=== PATIENT | female | born 1990 | race Two or more races ===

== ENCOUNTER 2020-05-26 04:39 | Inpatient (IN) | payer BC ==
[2020-05-26 05:22] LABS: APPEARANCE,URINE SLIGHTLY-CLOUDY; BILIRUBIN,URINE NEGATIVE (NEGATIVE); COLOR,URINE YELLOW; GLUCOSE, URINE NEGATIVE (NEGATIVE); KETONES,URINE NEGATIVE (NEGATIVE); LEUKOCYTE ESTERASE,URINE TRACE (NEGATIVE); NITRITE,URINE NEGATIVE (NEGATIVE); PROTEIN,URINE NEGATIVE (NEGATIVE); URINE SPECIFIC GRAVITY 1.019; UROBILINOGEN,URINE NEGATIVE mg/dL (<2.0)
[2020-05-26] MEDS ORDERED: RINGERS SOLUTION,LACTATED 1,000 ML IV ONE (05:24)
[2020-05-26 05:38] LABS: URINE AMPHETAMINES SCREEN NEGATIVE; URINE BARBITURATES SCREEN NEGATIVE; URINE BENZODIAZEPINES SCREEN NEGATIVE; URINE COCAINE SCREEN NEGATIVE; URINE MARIJUANA (THC) SCREEN NEGATIVE; URINE METHADONE SCREEN NEGATIVE; URINE PHENCYCLIDINE SCREEN NEGATIVE
[2020-05-26] MEDS: RINGERS SOLUTION,LACTATED 1,000 ML IV PRN ×5 (05:45→16:04)
[2020-05-26] MEDS ORDERED: OXYTOCIN/0.9 % SODIUM CHLORIDE 30 UNIT/500 ML RTUINJ ONE (05:56)
[2020-05-26] MEDS ORDERED: LIDOCAINE 1% INJ-PF (10 MG/ML) 30 ML SDV ONE (05:56)
[2020-05-26] MEDS ORDERED: OXYTOCIN 10 UNIT/ML VIAL ONE (05:56)
[2020-05-26] MEDS ORDERED: MISOPROSTOL 0.2 MG TABLET ONE (05:56)
[2020-05-26] MEDS ORDERED: OXYTOCIN/0.9 % SODIUM CHLORIDE 30 UNIT/500 ML RTUINJ IV PRN (06:04)
[2020-05-26 06:06] LABS: ABSOLUTE EOSINOPHILS # (AUTO) 0.1 10^3/uL (0.0-0.6); ABSOLUTE LYMPHOCYTES (AUTO) 1.4 10^3/uL (0.5-4.7); ABSOLUTE MONOCYTES (AUTO) 0.7 10^3/uL (0.1-1.4); ABSOLUTE NEUT (AUTO) 8.3 10^3/uL (1.7-8.2); BASOPHILS % (AUTO) 0.2 % (0-2); EOSINOPHILS % (AUTO) 0.8 % (0-6); HEMATOCRIT 30.8 % (36.0-47.0); HEMOGLOBIN 10.7 g/dL (12.0-15.5); LYMPHOCYTES % (AUTO) 13.6 % (13-45); MEAN CORPUSCULAR HEMOGLOBIN 32.6 pg (27.0-33.4); MEAN CORPUSCULAR HGB CONC 34.7 g/dL (32.0-36.0); MEAN CORPUSCULAR VOLUME 94 fl (80-97); MONOCYTES % (AUTO) 6.9 % (3-13); PLATELET COUNT 161 10^3/uL (150-450); RED BLOOD COUNT 3.28 10^6/uL (3.72-5.28); SEGMENTED NEUTROPHILS % (AUTO) 78.5 % (42-78); TOTAL CELLS COUNTED % (AUTO) 100 %; WHITE BLOOD COUNT 10.6 10^3/uL (4.0-10.5)
[2020-05-26] MEDS ORDERED: NALBUPHINE HCL INJ 10 MG/1 ML AMPULE ONE (08:57)
[2020-05-26] MEDS ORDERED: NALBUPHINE HCL INJ 10 MG/1 ML AMPULE INJ ONE (09:19)
[2020-05-26] MEDS ORDERED: BUPIVACAINE HCL 0.25 % INJ/PF (2.5 MG/1 ML) 30 ML VIAL ONE (10:58)
[2020-05-26] MEDS ORDERED: EPHEDRINE SULFATE INJ 50 MG/1 ML AMPULE ONE (10:58)
[2020-05-26] MEDS ORDERED: FENTANYL/BUPIVACAINE/NS/PF 300 MCG/150 ML RTUINJ EPI ONE (10:58)
--- NOTE | 2020-05-26 11:23 | Admission Physical ---
Datetime Report Generated by CPN: 05/26/2020 11:23 CURRENT ADMISSION Hx Assessment: The History has been Reviewed and is Current Chief Complaint: Suspected Ruptured Membranes Admit Impression : Term, Intrauterine ; No Active Labor; Ruptured Membranes Admit Plan: Admit to Unit; Initiate Labor Induction Protocol ALLERGIES Medication Allergies: No Medication Allergies: No Known Allergies (05/26/2020) Latex: No Latex Allergies OBSTETRICAL HISTORY EDC: 05/27/2020 00:00 : 1 Para: 0 Term: 0 : 0 SAB: 0 IAB: 0 Ectopic: 0 Livin Cesareans: 0 VBACs: 0 Multiple Births: 0 Gestational Diabetes: No Rh Sensitization: No Incompetent Cervix: No ELISE: No Infertility: No ART Treatment: No Uterine Anomaly: No IUGR: No Hx Previous C/S: No Macrosomia: No Hx Loss/Stillborn: No PIH: No Hx : No Placenta Previa/Abruption: No Depression/PP Depression: No PTL/PROM: No Post Hemorrhage: No Current Procedures: Ultrasound Obstetrical History Comments: G1- current SEE RECORDS Alcohol: No Marijuana : No Cocaine: No Other Illicit Drugs: No Cigarettes: Never Smoker. 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: No Heart Disease: No Hosp/Surgery: No Autoimmune Disorder: No Anesthetic Complications: No Kidney Disease: No Abnormal Pap Smear: No Neuro/Epilepsy: No Psychiatric Disorders: No Other Medical Diseases: No Hepatitis/Liver Disease: No Significant Family History: No Varicosities/Phlebitis: No Trauma/Violence : No Thyroid Dysfunction: No INFECTIOUS HISTORY Gonorrhea: No Genital Herpes: No Chlamydia: No Syphilis: No HIV/AIDS Exposure: No HPV: No PHYSICAL EXAM General: Normal HEENT: Normal Neurologic: Normal Thyroid: Normal Heart: Normal Lungs: Normal Breast: Deferred Back: Normal Abdomen: Normal Genitourinary Exam: Normal Extremities: Normal DTRs: Normal Pelvic Type: Adequate Physical Exam Comments: Covid test neg CVS after fever and cold symptoms GBS neg Vital Signs: Reviewed FETUS A EGA: 39.6 Monitoring: External US Decelerations: None FHR Category: Category I Admit Comment: Admitted to LD for SROM, by Dr. Ruiz, Pitocin and ramirez bulb by Dr. Ochoa, Cat 1 strip, irreg uc's, requesting epidural Pt agrees to POC PLANS FOR LABOR AND DELIVERY Labor and Delivery: None Pain Management: None Feeding Preference: Breast Circumcision: Yes INFORMED CONSENT Assignment: Cyndee Ochoa MD Signature: with User ID: [email or web address] : with User ID: [email or web address]
--- NOTE | 2020-05-26 14:59 | L&D Progress Notes ---
PROGRESS NOTES Datetime Report Generated by CPN: 05/26/2020 14:59 PROGRESS NOTE Comment: late decelerations, moderate variability, turn to left side and trendelenberg, Pitocin off, Dr. Ochoa aware of status LAST VAGINAL EXAM-NURSING Nursing Exam Dilitation: 5.0 Nursing Exam Effacement: 80 Nursing Exam Station: -2 SIGNATURE SIGNATURE: [id number];[id number] Assignment: Cyndee Ochoa MD Signature: with User ID: Asya : with User ID: Asya
--- NOTE | 2020-05-26 15:34 | L&D Progress Notes ---
PROGRESS NOTES Datetime Report Generated by CPN: 05/26/2020 15:33 PROGRESS NOTE Comment: Cat 1 strip, will restart Pitocin, Dr. Ochoa aware with strip status LAST VAGINAL EXAM-NURSING Nursing Exam Dilitation: 5.0 Nursing Exam Effacement: 80 Nursing Exam Station: -2 SIGNATURE SIGNATURE: [id number];[id number] Assignment: Cyndee Ochoa MD Signature: with User ID: Asya : with User ID: Asya
[2020-05-26] MEDS ORDERED: GENTAMICIN SULFATE INJ 80 MG/2 ML VIAL ONE ×2 (21:50→22:05)
[2020-05-26] MEDS ORDERED: AMPICILLIN SOD INJ 2 GM VIAL ONE (21:50)
[2020-05-26] MEDS ORDERED: GENTAMICIN SULFATE INJ 80 MG/2 ML VIAL IV ONE (21:50)
[2020-05-26] MEDS ORDERED: GENTAMICIN SULFATE INJ 80 MG/2 ML VIAL IV SCH (22:00)
[2020-05-27] MEDS ORDERED: GENTAMICIN SULFATE INJ 80 MG/2 ML VIAL IV PRN (00:46)
[2020-05-27] MEDS ORDERED: CITRIC ACID/SODIUM CITRATE ORAL SOLN 15 ML UDCUP ONE (01:19)
[2020-05-27] MEDS ORDERED: CEFAZOLIN 2 GM/D5W RTU 2 GM/50 ML RTUPB IV ONE (01:19)
[2020-05-27] MEDS ORDERED: METHYLERGONOVINE MALEATE INJ/PF 0.2 MG/1 ML AMPULE ONE ×2 (01:26→01:40)
[2020-05-27] MEDS ORDERED: OXYTOCIN 10 UNIT/ML VIAL ONE (01:39)
[2020-05-27] MEDS ORDERED: ACETAMINOPHEN 1,000 MG/100 ML RTUPB IV ONE (01:40)
[2020-05-27] MEDS ORDERED: FENTANYL CITRATE INJ/PF 100 MCG/2 ML AMPUL ONE ×2 (01:40→03:45)
[2020-05-27] MEDS ORDERED: KETOROLAC TROMETHAMINE INJ/PF 30 MG/1 ML SDV ONE (01:40)
[2020-05-27] MEDS ORDERED: EPHEDRINE SULFATE INJ 50 MG/1 ML AMPULE ONE (01:40)
[2020-05-27] MEDS ORDERED: MIDAZOLAM 2 MG/2 ML INJ ONE (01:40)
--- NOTE | 2020-05-27 01:44 | L&D Progress Notes ---
PROGRESS NOTES Datetime Report Generated by CPN: 05/27/2020 01:44 PROGRESS NOTE Comment: not febrile yet but on exam concern for chorio. Now with continued late decelerations and variables. Pt with 60# weight gain in . Recommend c/s for NRFHTs. LAST VAGINAL EXAM-NURSING Nursing Exam Dilitation: 10.0 Nursing Exam Effacement: 100 Nursing Exam Station: 0 Nursing Exam Contractions: abdomen soft between contractions. SIGNATURE SIGNATURE: [id number];[id number] Assignment: Cyndee Ochoa MD Signature: with User ID: Nicolette : with User ID: [email or web address]
[2020-05-27] MEDS ORDERED: LIDOCAINE 2% INJ-PF (20 MG/ML) 10 ML AMPUL ONE (01:46)
[2020-05-27] MEDS ORDERED: PROMETHAZINE HCL INJ 25 MG/1 ML VIAL IV PRN ×3 (02:29→06:50)
[2020-05-27] MEDS ORDERED: MEPERIDINE HCL/PF INJ 25 MG/1 ML DISP.SYRIN IV PRN (02:29)
[2020-05-27] MEDS ORDERED: FENTANYL CITRATE INJ/PF 100 MCG/2 ML AMPUL IV PRN ×3 (02:29)
[2020-05-27] MEDS ORDERED: MORPHINE SULFATE 10 MG/ML INJ IV PRN (02:29)
[2020-05-27] MEDS ORDERED: DIPHENHYDRAMINE HCL 50 MG/ML VIAL IV PRN (02:29)
[2020-05-27] MEDS ORDERED: OXYCODONE-ACETAMINOPHEN 5-325 MG TABLET PO PRN ×2 (02:29)
--- NOTE | 2020-05-27 03:09 | Brief Operative Note ---
BRIEF OPERATIVE REPORT DATE OF SURGERY: 05/27/20 TIME OF SURGERY: 02:00 PREOPERATIVE DIAGNOSIS: PUND at 40+0ega, PROM with prolonged Rupture of membranes, Suspected chorioamniotis, Nonreassuring FHRT, Excess weight gain in , tachycardia. POSTOPERATIVE DIAGNOSIS: GABE - delivered SURGEON: MAYNOR VALENCIA FINDINGS: VMI delivered at 0222, weight 8#, APgars 9/9. Normal bilateral tubes and ovaries. Uterine atony resolved with WILMAR pitocin 10units IM and TN cytotec 1000mcg. Surgicel placed. COMPLICATIONS: uterine atony ESTIMATED BLOOD LOSS: 700 TISSUE REMOVED OR ALTERED: placenta and cord TECHNICAL PROCEDURE: Primary Section
[2020-05-27] MEDS ORDERED: MORPHINE SULFATE 10 MG/ML INJ ONE (03:15)
--- NOTE | 2020-05-27 03:24 | Warning Signs in Babies ---
VOD Warning Signs Datetime Report Generated by [facility]: 05/27/2020 03:24 VOD#608 -Warning Signs in Babies: Needs to be viewed. (05/26/2020 04:41:Abbie lEias RN)
[2020-05-27] MEDS ORDERED: OXYTOCIN/0.9 % SODIUM CHLORIDE 30 UNIT/500 ML RTUINJ ONE (03:30)
--- NOTE | 2020-05-27 04:25 | Delivery Summary ---
Del Sum A-C Datetime Report Generated by CPN: 05/27/2020 04:25 DELIVERY PERSONNEL DELIVERY PERSONNEL: [id number] Delivery Doctor:: Cyndee Ochoa MD Anesthesiologist:: Caity PER DIEM:: Kiara Carrington CRNA Foreign Language Professor:: Eva Mendez RN Nursery Nurse:: Donna Copeland RN Senior Financial Accountant/LANDING SUPPORT SPECIALIST: ST Chely Senior Financial Accountant/LANDING SUPPORT SPECIALIST: [facility] Luigi MATERNAL INFORMATION Delivery Anesthesia: Epidural Medications After Delivery: Pitocin 30 Units in 500ml NS/D5W; Cytotec 1000mcg Per Rectum/Vagina Delivery QBL: 320 Maternal Complications: Premature Rupture of Membranes; Chorioamnionitis; Maternal Fever LABOR SUMMARY EDC: 05/27/2020 00:00 No. Babies in Womb: 1 Attempted: No Labor Anesthesia: Epidural LABOR INFORMATION Reason for Induction: Not Applicable Onset of Labor: 05/26/2020 17:47 Complete Dilatation: 05/27/2020 01:04 Oxytocin: Augmentation Group B Beta Strep: Negative Antibiotics # of Doses: 0 Antibiotics Time of Last Dose: N/A Name of Antibiotic Given: N/A Steroids Given: None Reason Steroids Not Administered: Not Applicable MEMBRANES Membranes Rupture Method: Spontaneous Rupture of Membranes: 05/26/2020 02:40 Length of Rupture (hr): 23.70 Amniotic Fluid Color: Light Meconium Amniotic Fluid Amount: Moderate Amniotic Fluid Odor: Normal STAGES OF LABOR Stage 1 hr: 7 Stage 1 min: 17 Stage 2 hr: 1 Stage 2 min: 18 Stage 3 hr: 0 Stage 3 min: 3 Total Time in Labor hr: 8 Total Time in Labor min: 38 VAGINAL DELIVERY Episiotomy: None Laceration #1: None Laceration Extension #1: N/A Laceration Repair: Not Applicable Sponge Count Correct: N/A CSECTION DELIVERY Primary Indication: Nonreassuring Status Secondary Indication: N/A CSection Urgency: Non-Scheduled CSection Incidence: Primary Labor: Labor Elective: Nonelective CSection Incision: Lower Uterine Transverse BABY A INFORMATION Delivery Date/Time: 05/27/2020 02:22 Method of Delivery: Nurse Controlled Delivery: No Born in Route : No : N/A Forceps: N/A Vacuum Extraction: N/A Shoulder Dystocia : No PRESENTATION/POSITION BABY A Presentation: Cephalic Cephalic Presentation: Vertex Breech Presentation: N/A PLACENTA INFORMATION BABY A Placenta Delivery Time : 05/27/2020 02:25 Placenta Method of Delivery: Manual Removal Placenta Status: Delivered SCORES BABY A Heart Rate 1 min: >100 bpm Resp Effort 1 min: Good Cry Reflex Irritability 1 min: Cough or Sneeze or Pulls Away Muscle Tone 1 min: Active Motion Color 1 min: Body [place], Extremities Blue Resuscitation Effort 1 min: Tactile Stimulation SCORE 1 MIN: 9 Heart Rate 5 min: >100 bpm Resp Effort 5 min: Good Cry Reflex Irritability 5 min: Cough or Sneeze or Pulls Away Muscle Tone 5 min: Active Motion Color 5 min: Body [place], Extremities Blue SCORE 5 MIN: 9 INFORMATION BABY A Gestational Age at Delivery: 40.0 Gestational Status: Full Term- 39- 40.6 Weeks Infant Outcome : Liveborn Condition : Stable Sex: Male WEIGHT/LENGTH BABY A Birthweight (gm): 3615 Infant Weight (lb): 8 Weight (oz): 0 Length (in): 21.00 Infant Length (cm): 53.34 CORD INFORMATION BABY A No. 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
[2020-05-27] MEDS ORDERED: OXYCODONE-ACETAMINOPHEN 5-325 MG TABLET ONE (04:55)
[2020-05-27] MEDS ORDERED: GENTAMICIN SULFATE 120 MG in DEXTROSE 5%-WATER 100 ML IV SCH (06:00)
[2020-05-27] MEDS ORDERED: OXYTOCIN/0.9 % SODIUM CHLORIDE 30 UNIT/500 ML RTUINJ IV PRN (06:50)
[2020-05-27] MEDS ORDERED: SIMETHICONE 80 MG TAB.CHEW PO PRN (06:50)
[2020-05-27] MEDS ORDERED: ACETAMINOPHEN 325 MG TABLET PO PRN (06:50)
[2020-05-27] MEDS ORDERED: MEASLES,MUMPS&RUBELLA VACC/PF 0.5 ML VIAL SUBCUT PRN (06:50)
[2020-05-27] MEDS ORDERED: HYDROMORPHONE HCL INJ/PF 2 MG/ML AMPULE IV PRN (06:50)
[2020-05-27] MEDS ORDERED: DIPH/PERTUSS(ACELL)/TETANUS VAC/PF 0.5 ML SYR (>=10YO) IM PRN (06:50)
[2020-05-27] MEDS ORDERED: ACETAMINOPHEN 1,000 MG/100 ML RTUPB IV PRN (06:50)
[2020-05-27] MEDS ORDERED: RINGERS SOLUTION,LACTATED 1,000 ML IV PRN (06:50)
[2020-05-27] MEDS ORDERED: AMPICILLIN SOD INJ 1 GM VIAL ONE (06:53)
[2020-05-27] MEDS ORDERED: GENTAMICIN SULFATE INJ 80 MG/2 ML VIAL ONE (06:53)
[2020-05-27] MEDS: AMPICILLIN SODIUM 2 GM in NORMAL SALINE 100 ML IV SCH ×4 (08:21→21:44)
[2020-05-27] MEDS: DOCUSATE SODIUM 100 MG CAPSULE PO SCH ×2 (09:47→17:41)
[2020-05-27] MEDS: KETOROLAC TROMETHAMINE INJ/PF 30 MG/1 ML SDV IV SCH ×2 (09:47→17:40)
[2020-05-27] MEDS: PRENATAL VITAMIN W DHA CAPSULE PO SCH (09:47)
[2020-05-27] MEDS: RINGERS SOLUTION,LACTATED 1,000 ML IV PRN (09:51)
--- NOTE | 2020-05-27 10:14 | PDOC PROGRESS REPORT ---
Subjective-OB Progress Note for:: 05/27/20 Subjective: Feeling ok, some incisional pain, has not been out of bed, hsb at BS, plans to breast feed, taking food well Physical Exam (OB) Vital Signs: Temp Pulse Resp BP Pulse Ox 97.9 F 76 18 98/56 L 98 05/27/20 09:33 05/27/20 09:33 05/27/20 09:33 05/27/20 09:33 05/27/20 09:33 Intake & Output 05/26/20 05/27/20 05/28/20 06:59 06:59 06:59 Intake Total 2291 Balance 2291 Weight 77.8 kg - Incision: Open Closure Type: Surgical Glue - Lochia Lochia Amount: Scant < 10 ml Lochia Color: Rubra/Red - Abdomen Description: Tender, Soft, Round Hernia Present: No Fundal Description: Firm, Midline Fundal Height: u/u - u/2 Objective-Diagnostic Laboratory: 05/26/20 05:47 Assessment and Plan(PN) - Assessment and Plan (1) Status post primary low transverse section Is this a current diagnosis for this admission?: Yes (2) Non-reassuring electronic monitoring tracing Is this a current diagnosis for this admission?: Yes (3) Chorioamnionitis, delivered, current hospitalization Is this a current diagnosis for this admission?: Yes (4) Prolonged rupture of membranes Is this a current diagnosis for this admission?: Yes (5) Premature rupture of membranes Qualifiers: PROM onset of labor timing: onset of labor within 24 hours of rupture Is this a current diagnosis for this admission?: Yes - Time Spent with Patient Time with patient: Less than 15 minutes Medications reviewed and adjusted accordingly: Yes - Disposition Anticipated Discharge: Home Within: within 24 hours
[2020-05-27] MEDS: GENTAMICIN SULFATE 120 MG in DEXTROSE 5%-WATER 100 ML IV SCH ×2 (11:38→17:42)
[2020-05-27] MEDS: OXYCODONE-ACETAMINOPHEN 5-325 MG TABLET PO PRN ×2 (17:41→21:46)
[2020-05-27] MEDS: DIPHENHYDRAMINE HCL 50 MG CAPSULE PO PRN (17:45)
[2020-05-27] MEDS: IBUPROFEN 800 MG TABLET PO SCH (23:21)
[2020-05-28] MEDS: OXYCODONE-ACETAMINOPHEN 5-325 MG TABLET PO PRN ×5 (01:54→18:37)
[2020-05-28] MEDS: GENTAMICIN SULFATE 120 MG in DEXTROSE 5%-WATER 100 ML IV SCH (01:55)
[2020-05-28] MEDS: AMPICILLIN SODIUM 2 GM in NORMAL SALINE 100 ML IV SCH ×2 (03:32→09:16)
[2020-05-28] MEDS: DIPHENHYDRAMINE HCL 50 MG CAPSULE PO PRN ×2 (03:40→12:03)
[2020-05-28] MEDS: IBUPROFEN 800 MG TABLET PO SCH ×3 (06:07→18:36)
[2020-05-28 07:00] LABS: HEMATOCRIT 26.9 % (36.0-47.0); MEAN CORPUSCULAR HEMOGLOBIN 31.9 pg (27.0-33.4); MEAN CORPUSCULAR HGB CONC 33.6 g/dL (32.0-36.0); MEAN CORPUSCULAR VOLUME 95 fl (80-97); PLATELET COUNT 148 10^3/uL (150-450); RED BLOOD COUNT 2.83 10^6/uL (3.72-5.28); RED CELL DISTRIBUTION WIDTH 13.7 % (11.5-14.0); WHITE BLOOD COUNT 13.9 10^3/uL (4.0-10.5)
--- NOTE | 2020-05-28 09:12 | PDOC PROGRESS REPORT ---
Subjective-OB Progress Note for:: 05/27/20 Subjective: Doing well, no c/o, feeling better today, less pain, eating and voiding Physical Exam (OB) Vital Signs: Temp Pulse Resp BP Pulse Ox 98.0 F 85 16 99/56 L 96 05/28/20 07:25 05/28/20 07:25 05/28/20 07:25 05/28/20 07:25 05/28/20 07:25 Intake & Output 05/27/20 05/28/20 05/29/20 06:59 06:59 06:59 Intake Total 2291 700 Output Total 700 Balance 2291 0 - PIH/Pre-Eclampsia DTR's: 2 + Clonus: Negative Headache: Absent Epigastric Pain: No Visual Changes: No - Dressing Removed: - N/A Incision: Open, Well Approximated Closure Type: Surgical Glue - Lochia Lochia Amount: Scant < 10 ml Lochia Color: Rubra/Red - Abdomen Description: Tender, Soft Hernia Present: No Fundal Description: Firm, Midline Fundal Height: u/u - u/2 Objective-Diagnostic Laboratory: 05/28/20 05:57 05/28/20 05:57 WBC 13.9 H RBC 2.83 L Hgb 9.0 L Hct 26.9 L MCV 95 MCH 31.9 MCHC 33.6 RDW 13.7 Plt Count 148 L Assessment and Plan(PN) - Assessment and Plan (1) Status post primary low transverse section Is this a current diagnosis for this admission?: Yes (2) Non-reassuring electronic monitoring tracing Is this a current diagnosis for this admission?: Yes (3) Chorioamnionitis, delivered, current hospitalization Is this a current diagnosis for this admission?: Yes (4) Prolonged rupture of membranes Is this a current diagnosis for this admission?: Yes (5) Premature rupture of membranes Qualifiers: PROM onset of labor timing: onset of labor within 24 hours of rupture Is this a current diagnosis for this admission?: Yes - Time Spent with Patient Time with patient: Less than 15 minutes Medications reviewed and adjusted accordingly: Yes - Disposition Anticipated Discharge: Home Within: within 24 hours
[2020-05-28] MEDS: PRENATAL VITAMIN W DHA CAPSULE PO SCH (10:14)
[2020-05-28] MEDS: DOCUSATE SODIUM 100 MG CAPSULE PO SCH ×2 (10:14→18:36)
[2020-05-29] MEDS: IBUPROFEN 800 MG TABLET PO SCH ×3 (00:32→12:00)
[2020-05-29 07:43] VITALS: BP 108/70
--- NOTE | 2020-05-29 08:47 | PDOC PROGRESS REPORT ---
Subjective-OB Progress Note for:: 05/29/20 Subjective: Ready for discharge. Physical Exam (OB) Vital Signs: Temp Pulse Resp BP Pulse Ox 98.0 F 91 16 108/70 100 05/29/20 07:42 05/29/20 07:42 05/29/20 07:42 05/29/20 07:42 05/29/20 07:42 Intake & Output 05/28/20 05/29/20 05/30/20 06:59 06:59 06:59 Intake Total 700 3680 Output Total 700 Balance 0 3680 - PIH/Pre-Eclampsia DTR's: 2 + Clonus: Negative Headache: Absent Epigastric Pain: No Visual Changes: No - Dressing Removed: No Incision: Well Approximated Closure Type: Surgical Glue - Lochia Lochia Amount: Small 10-25 ml Lochia Color: Rubra/Red - Abdomen Description: Tender, Soft Hernia Present: No Bowel Sounds: Normoactive Flatus Presence: Present Stool: No Fundal Description: Firm, Midline Fundal Height: u/u - u/2 Objective-Diagnostic Laboratory: 05/28/20 05:57 Assessment and Plan(PN) - Time Spent with Patient Medications reviewed and adjusted accordingly: Yes - Disposition Anticipated Discharge: Home
--- NOTE | 2020-05-29 09:21 | PDOC DISCHARGE SUMMARY ---
Impression - Admit/DC Date/PCP Admission Date/Primary Care Provider: 05/26/20 05:26 JONNATHAN TONEY MD Discharge Date: 05/29/20 - Discharge Diagnosis (1) Chorioamnionitis, delivered, current hospitalization Is this a current diagnosis for this admission?: Yes (2) Non-reassuring electronic monitoring tracing Is this a current diagnosis for this admission?: Yes (4) Premature rupture of membranes Is this a current diagnosis for this admission?: Yes (5) Prolonged rupture of membranes Is this a current diagnosis for this admission?: Yes (6) Status post primary low transverse section Is this a current diagnosis for this admission?: Yes - Additional Information Resuscitation Status: Full Code Discharge Diet: Regular Discharge Activity: Activity As Tolerated, Balance Activity w/Rest, No Lifting Over 10 Pounds, No Lifting/Push/Pulling, Pelvic Rest, Slowly Increase Activity, No tub bath Referrals: JONNATHAN TONEY MD [Primary Care Provider] - Prescriptions: Oxycodone HCl/Acetaminophen [Percocet 5-325 mg Tablet] 1 tab PO Q4HP PRN #20 tablet PRN Reason: Ferrous Sulfate [Feosol 325 mg Tablet] 325 mg PO DAILY #30 tab Ibuprofen [Motrin 800 mg Tablet] 800 mg PO Q6 #30 tablet Home Medications: Prenat 115/Iron Fum/Folic/Dss [ 19 Tablet] 1 tab PO DAILY 05/26/20 Ferrous Sulfate [Feosol 325 mg Tablet] 325 mg PO DAILY #30 tab 05/29/20 Ibuprofen [Motrin 800 mg Tablet] 800 mg PO Q6 #30 tablet 05/29/20 Oxycodone HCl/Acetaminophen [Percocet 5-325 mg Tablet] 1 tab PO Q4HP PRN #20 tablet 05/29/20 HPI Gestational Age: 40 wks Reason(s) for Admission: PROM Procedures: Ultrasound Intrapartum Procedure(s): : Low Cervical, Transverse Results Laboratory Results: WBC 13.9 10^3/uL (4.0-10.5) H 05/28/20 05:57 RBC 2.83 10^6/uL (3.72-5.28) L 05/28/20 05:57 Hgb 9.0 g/dL (12.0-15.5) L 05/28/20 05:57 Hct 26.9 % (36.0-47.0) L 05/28/20 05:57 MCV 95 fl (80-97) 05/28/20 05:57 MCH 31.9 pg (27.0-33.4) 05/28/20 05:57 MCHC 33.6 g/dL (32.0-36.0) 05/28/20 05:57 RDW 13.7 % (11.5-14.0) 05/28/20 05:57 Plt Count 148 10^3/uL (150-450) L 05/28/20 05:57 Lymph % (Auto) 13.6 % (13-45) 05/26/20 05:47 [place] % (Auto) 6.9 % (3-13) 05/26/20 05:47 Eos % (Auto) 0.8 % (0-6) 05/26/20 05:47 Baso % (Auto) 0.2 % (0-2) 05/26/20 05:47 Absolute Neuts (auto) 8.3 10^3/uL (1.7-8.2) H 05/26/20 05:47 Absolute Lymphs (auto) 1.4 10^3/uL (0.5-4.7) 05/26/20 05:47 Absolute Monos (auto) 0.7 10^3/uL (0.1-1.4) 05/26/20 05:47 Absolute Eos (auto) 0.1 10^3/uL (0.0-0.6) 05/26/20 05:47 Absolute Basos (auto) 0.0 10^3/uL (0.0-0.2) 05/26/20 05:47 Seg Neutrophils % 78.5 % (42-78) H 05/26/20 05:47 Urine Color YELLOW 05/26/20 04:50 Urine Appearance SLIGHTLY-CLOUDY 05/26/20 04:50 Urine pH 6.0 (5.0-9.0) 05/26/20 04:50 Ur Specific Omer 1.019 05/26/20 04:50 Urine Protein NEGATIVE mg/dL (NEGATIVE) 05/26/20 04:50 Urine Glucose (UA) NEGATIVE mg/dL (NEGATIVE) 05/26/20 04:50 Urine Ketones NEGATIVE mg/dL (NEGATIVE) 05/26/20 04:50 Urine Blood LARGE (NEGATIVE) H 05/26/20 04:50 Urine Nitrite NEGATIVE (NEGATIVE) 05/26/20 04:50 Urine Bilirubin NEGATIVE (NEGATIVE) 05/26/20 04:50 Urine Urobilinogen NEGATIVE mg/dL (<2.0) 05/26/20 04:50 Ur Leukocyte Esterase TRACE (NEGATIVE) H 05/26/20 04:50 Urine Ascorbic Acid NEGATIVE (NEGATIVE) 05/26/20 04:50 Membranes Rupture POSITIVE (NEGATIVE) H 05/26/20 05:00 Urine Opiates Screen NEGATIVE 05/26/20 04:50 Urine Methadone Screen NEGATIVE 05/26/20 04:50 Ur Barbiturates Screen NEGATIVE 05/26/20 04:50 Ur Phencyclidine Scrn NEGATIVE 05/26/20 04:50 Ur Amphetamines Screen NEGATIVE 05/26/20 04:50 U Benzodiazepines Scrn NEGATIVE 05/26/20 04:50 Urine Cocaine Screen NEGATIVE 05/26/20 04:50 U Marijuana (THC) Screen NEGATIVE 05/26/20 04:50 RPR NONREACTIVE (NONREACTIVE) 05/26/20 05:47 Blood Type A POSITIVE 05/26/20 05:47 Antibody Screen NEGATIVE 05/26/20 05:47 Plan Plan of Treatment: Follow up at [facility] in 1 wk. Time Spent: Less than 30 Minutes
[2020-05-29] MEDS: OXYCODONE-ACETAMINOPHEN 5-325 MG TABLET PO PRN (09:39)
[2020-05-29] MEDS: PRENATAL VITAMIN W DHA CAPSULE PO SCH (09:39)
[2020-05-29] MEDS: DOCUSATE SODIUM 100 MG CAPSULE PO SCH (09:39)
[2020-05-29] MEDS: DIPHENHYDRAMINE HCL 50 MG CAPSULE PO PRN (09:39)
== END 2020-05-29 12:43 | disposition home or self-care (01) | DRG 786 ==
LOC: LC 04:39 → LR 05:26 → 2S 05-27 05:17
PROVIDERS: ADMIT Obstetrics & Gynecology Gynecology; ATTEND Student in an Organized Health Care Education/Training Program
PROC: 10D00Z1 Extraction of Products of Conception, Low, Open Approach (ICD-10-PCS; principal; 2020-05-27)
DX: O76 Abnormality in fetal heart rate and rhythm complicating labor and delivery (principal); O41.1230 Chorioamnionitis, third trimester, not applicable or unspecified; O75.2 Pyrexia during labor, not elsewhere classified; O69.2XX0 Labor and delivery complicated by other cord entanglement, with compression, not applicable or unspecified; O26.03 Excessive weight gain in pregnancy, third trimester; Z37.0 Single live birth; O42.92 Full-term premature rupture of membranes, unspecified as to length of time between rupture and onset of labor; O62.2 Other uterine inertia; Z3A.40 40 weeks gestation of pregnancy
CPT/HCPCS: 1967; 1968; 36415; 80307; 81005; 84112; 85025; 85027; 86592; 86850; 86900; 86901; 88307; 94760; 94799; C1726; C1758; J0131; J0290; J0690; J1170; J1580; J1885; J2210; J2250; J2270; J2300; J2590; J3010; J3490; J7050; J7060; J7120